=== PATIENT | female | born 1960 | race Caucasian/White ===

== ENCOUNTER → 2021-10-24 | Outpatient (CLI) | payer OTHER | LOC: KOH-I 10-17 15:15 | DX: M51.16 Intervertebral disc disorders with radiculopathy, lumbar region (principal); M71.30 Other bursal cyst, unspecified site | CPT/HCPCS: 72148 ==

== ENCOUNTER → 2021-12-18 | Outpatient (CLI) | payer OTHER ==
[~2021-12-18] MED LIST: ALBUTEROL2.5 MG/3 M INH; ALEVE220 MG PO; BENTYL 10MG CAP10 MG PO; CELEBREX200 MG PO; CYMBALTA60 MG PO; DAILY VALUE1 EACH PO; JARDIANCE25 MG PO; LEVEMIR FL100 UNIT/1 SC; LISINOPRIL20 MG PO; LOW DOSE ASPIRI81 MG PO; NEURONTIN300 MG PO; NOVOLOG FL100 UNIT/1 SC; OXYCODONE-ACET1 EACH PO; PROAIR HFA8.5 GM INH; PROTONIX40 MG PO; RYBELSUS3 MG PO; TRULICITY1.5 MG/0.5 SC; ZOCOR40 MG PO
[2021-12-18 11:10] LABS: HEMOGLOBIN 15.2 gm/dl (12.3-15.3); RED BLOOD COUNT 4.77 M/UL (4.00-5.10); WHITE BLOOD COUNT 10.3 K/UL (4.5-11.0)
[2021-12-18 11:28] LABS: BUN/CREATININE RATIO 38 (0-10)
== END ==
LOC: EDSTATUS 10:00 → OPSV2 10:00
PROVIDERS: Orthopaedic Surgery
DX: Z01.818 Encounter for other preprocedural examination (principal); M54.16 Radiculopathy, lumbar region
CPT/HCPCS: 36415; 71046; 80048; 81001; 85027; 85610; 85730; 87081; 93005

== ENCOUNTER → 2021-12-28 | Outpatient (CLI) | payer OTHER ==
[~2021-12-28] MED LIST changes: +LORATADINE10 MG PO
[2021-12-28 11:34] LABS: BUN/CREATININE RATIO 22 (0-10)
== END ==
LOC: LAB 10:54
PROVIDERS: Orthopaedic Surgery
DX: Z01.812 Encounter for preprocedural laboratory examination (principal)
CPT/HCPCS: 80048; 86850; 86900; 86901

== ENCOUNTER 2021-12-29 05:56 | Observation (INO) | payer OTHER ==
[~2021-12-29] VITALS: Ht 162.6 cm; Wt 91.2 kg
[~2021-12-29 05:56] MED LIST changes: -LORATADINE10 MG PO
[2021-12-29 12:36] LABS: HEMOGLOBIN 14.2 gm/dl (12.3-15.3); RED BLOOD COUNT 4.49 M/UL (4.00-5.10); WHITE BLOOD COUNT 8.3 K/UL (4.5-11.0)
[2021-12-29 12:54] LABS: BUN/CREATININE RATIO 30 (0-10)
[2021-12-29] MEDS ORDERED: CYMBALTA60 MG PO (13:55)
[2021-12-29] MEDS ORDERED: LORATADINE10 MG PO (13:56)
[2021-12-30 05:02] LABS: HEMOGLOBIN 12.7 gm/dl (12.3-15.3)
[2021-12-30 05:04] LABS: RED BLOOD COUNT 4.04 M/UL (4.00-5.10); WHITE BLOOD COUNT 17.9 K/UL (4.5-11.0)
[2021-12-30 05:48] LABS: BUN/CREATININE RATIO 26 (0-10)
[2021-12-31 03:09] LABS: HEMOGLOBIN 10.6 gm/dl (12.3-15.3); RED BLOOD COUNT 3.27 M/UL (4.00-5.10); WHITE BLOOD COUNT 13.1 K/UL (4.5-11.0)
[2021-12-31 03:26] LABS: BUN/CREATININE RATIO 22 (0-10)
[2021-12-31 10:12] LABS: RED BLOOD COUNT 4.43 M/UL (4.00-5.10); WHITE BLOOD COUNT 16.4 K/UL (4.5-11.0)
[2021-12-31 10:50] LABS: BUN/CREATININE RATIO 17 (0-10)
[2022-01-01 05:17] LABS: HEMOGLOBIN 13.2 gm/dl (12.3-15.3); RED BLOOD COUNT 4.08 M/UL (4.00-5.10)
[2022-01-01 05:32] LABS: BUN/CREATININE RATIO 26 (0-10)
[2022-01-01] MEDS ORDERED: LOPRESSOR 25 MG25 MG PO (11:52)
[2022-01-01] MEDS ORDERED: LISINOPRIL2.5 MG PO (11:52)
[2022-01-01] MEDS ORDERED: STIMULANT LAXA1 EACH PO (11:52)
[2022-01-01] MEDS ORDERED: CYCLOBENZAPRINE5 MG PO (11:52)
--- NOTE | 2022-01-01 12:33 | NUR ---
LSO BRACE PROVIDED TO PATIENT PRIOR TO DISCHARGE HOME.
== END 2022-01-01 12:39 | disposition home or self-care (01) ==
LOC: OR 05:56 → CCU 13:10 → OR 13:10 → CCU 12-31 14:40
PROVIDERS: Internal Medicine; ADMIT Orthopaedic Surgery
DX: M47.26 Other spondylosis with radiculopathy, lumbar region (principal); M71.38 Other bursal cyst, other site
CPT/HCPCS: ECHO; 36415; 72100; 72110; 76000; 80048; 80053; 82009; 82550; 82553; 82803; 82962; 83036; 83605; 83735; 84100; 84439; 84443; 84484; 85025; 85027; 93005; 93306; 96372; 97116-GP-CQ; 97162; 97166; 97530; 97535; C1713; C1762; G0378; J0690; J1100; J1170; J1644; J2001; J2250; J2370; J2405; J2704; J3010; J3370; J7040